=== PATIENT | female | born 1950 | race Caucasian/White ===

== ENCOUNTER 2016-10-26 06:37 | Day surgery (SDC) | payer OTHER ==
[2016-10-26] VITALS (9 sets, daily range): BP systolic 117–135; BP diastolic 67–87; PULSE 65–87; RESP 13–19; O2SAT 93–99
[~2016-10-26] VITALS: Ht 170.2 cm; Wt 89.5 kg
[~2016-10-26 06:37] MED LIST: ASCO-294 PO; CALC-140 PO; CeFAZolin Inj 2 GM in IV Premix 1 EACH IV ONE; DILT180C81 PO; GLUC-180 PO; LEVO200T6 PO; Lactated Ringer's 1,000 ML IV SCH; MULT-1018 PO; OMEG1CAP25 PO; OMEP20CA11 PO; RED600CA2 PO; cranberry
[2016-10-26] MEDS ORDERED: Ondansetron 2 mg/mL 2 mL Inj ONE (06:38)
[2016-10-26] MEDS ORDERED: fentaNYL-PF 50 mCg/mL 2 mL Inj ONE (06:38)
[2016-10-26] MEDS ORDERED: Propofol 10,000 mCg/mL 20 mL Inj ONE (06:38)
--- NOTE | 2016-10-26 07:17 | PCM.HPANE ---
Patient Data Surgeon Admitting Provider: Attending Provider:Jimbo Simon DO Primary Care Physician:Geovany Other Provider: Reason for Visit Right Index Finger Dupuytren Contracture Ht/WT & BMI Height (Feet): 5 Height (Inches): 7 Weight (Kilograms): 89.53 Body Mass Index 30.00 Allergies Coded Allergies: lisinopril (Verified Allergy, Unknown, cough, 06/02/16) Past Anesthesia History Anesthesia History: Denies:: Abnormal Airway, Anesthesia Reactions ("doesnt always work" medication tolerant), Difficult Intubation, Fam Anesthesia Reaction , Malignant Hyperthermia Diabetes History Hx Diabetes?: No MRSA MRSA: No Medications Blood Thinner: Aspirin Reported Medications Ascorbate Calcium (Vitamin C)500 Mg Qladiu820 Mg PO DAILY 10/24/16 Red Yeast Rice 600 Mg [id number] Mg PO DAILY 10/24/16 Omeprazole 20 Mg Capsule.dr20 Mg PO DAILY Ref 0 10/24/16 Aurora-3 Fatty Acids/Fish Oil (Aurora 3 Fish Oil Softgel)1 Each Capsule.dr1 Each PO DAILY 10/24/16 Multivitamin (Multi Vitamin Daily)1 Each Tablet1 Each PO DAILY 30 Days Ref 0 10/24/16 Levothyroxine 200 Mcg [id number] Mcg PO DAILY Ref 0 10/24/16 Glucosamine/MSM/Chondroitin A (Glucosamine Chondroit MSM Tab)1 Each Tablet1 Each PO DAILY 10/24/16 Diltiazem ER 180 Mg Capsule.er180 Mg PO DAILY Ref 0 10/24/16 [cranberry] No Conflict CheckUnknown Dose TID 10/24/16 Calcium Carbonate/Vitamin D3 (Calcium + Vitamin D Tablet)1 Each Tablet1 Each PO DAILY 10/24/16 Discontinued Reported Medications Red Yeast Rice 600 Mg Capsule1,200 Mg PO DAILY 05/31/16 Omeprazole 20 Mg Capsule.dr20 Mg PO DAILY Ref 0 05/31/16 Aurora-3 Fatty Acids/Fish Oil (Aurora 3 Fish Oil Softgel)1 Each Capsule.dr1 Each PO DAILY 05/31/16 Multivits Min/Iron/FA/Herb#186 (Hair, Skin & Nails Caplet)1 Each Tablet1 Each PO DAILY 05/31/16 Multivitamin (Multi Vitamin Daily)1 Each Tablet1 Each PO DAILY 30 Days Ref 0 05/31/16 Levothyroxine 200 Mcg [id number] Mcg PO DAILY Ref 0 05/31/16 Gluc Murcia/MSM/Magnesium/Vit C (Glucosamine Complex-MSM Cap)1 Each Capsule1 Each PO DAILY 05/31/16 Diltiazem ER 240 Mg Cap.er.irk973 Mg PO DAILY Ref 0 05/31/16 [cranberry] No Conflict CheckUnknown Dose TID 05/31/16 Calcium Carbonate/Vitamin D3 (Calcium + Vitamin D Tablet)1 Each Tablet1 Each PO DAILY 05/31/16 Aspirin 81 Mg Nubcnh93 Mg PO DAILY Ref 0 05/31/16 Ascorbate Calcium (Vitamin C)500 Mg Vqxawi132 Mg PO BID 05/31/16 History HEENT History: Denies:: Abnormal Airway Cataracts Difficult Intubation Dysphagia Hearing Problem Sinus Problem TMJ Hx of Heart Problems?: Yes Cardiovascular History: Positive for:: Atrial Fibrillation (paroxysmal atrial fib) Hypertension Irregular Heartbeat (PAF, hx of palpitations) Denies:: AICD Cardiac Surgery Chest Pain Congestive Heart Failure Heart Murmur Pacemaker Valvular Heart Disease (echo 11/2015- ef 61%) Hx of Respiratory Problem?: Yes Respiratory History: Positive for:: COPD (no home oxygen, no recent exacerbations, >4METS) Pneumonia ("years ago") Denies:: Asthma Cough Dyspnea Emphysema Oxygen Administration Tuberculosis Use of C-PAP Machine Hx Neurologic Problems?: No Neurological History: Denies:: CVA Dementia Headaches Multiple Sclerosis Parkinson's Disease Seizures Hx of GI Problems?: Yes Gastrointestinal History: Positive for:: Gastroesphageal Reflux (no symptoms) Heartburn Denies:: Cirrhosis Gastrointestinal Bleeding Hepatitis Hiatal Hernia Rectal Bleeding Hx of Problems?: Yes Genitourinary History: Positive for:: Kidney Stones (past hx of, passed spontaneously) Denies:: Urinary Tract Infection Female Hx: Positive for:: Problems with Breasts? (hx of left breast bx- benign , marker in place) Denies:: Currently (post menopausal) Skin History: Denies:: History Skin Disorders? Pressure Ulcers Hx Musculoskeletal Problems?: Yes Musculoskeletal History: Positive for:: Back Injury (chronic back pain) Degenerative Joint Musculoskeletal Trauma (right index finger current admission problem) Denies:: Joint Replacement Systemic Lupus Hx of Psycho/Social Problems?: Yes Psycho Social History: Positive for:: Anxiety Hx Surgeries?: Yes (D+C, breast aug, left knee scope, breast bx) Hx Any Other Health Problems?: Yes Other History: Positive for:: Thyroid Disease (on rx) Denies:: Cancer History Blood Transfusions: Denies:: Blood Transfusions Hx Diabetes: No Hx Alcohol Use: YesHx Substance Use: No Smoking Status: Former Smoker Have You Smoked inLast 12 mo: No Stop/Bang S-Snoring: Do You Snore Loudly: No T-Tired: feel tired, fatigued: No O-Obsered: Observed not breath: No P-Blood Pressure: treated: Yes B- Body Mass Index > 35 kg/m2: No A- Age over 50: Yes N- Neck Large Circumference: No G- Gender Male: No KOSTAS Total Score: 2 Risk Assessment Category Category 1A: Patient has history of documented sleep apnea, and HAS NOT received any narcotic, sedative or anesthesia administration during this stay. Category 1B: Patient has history of documented sleep apnea, and HAS received any narcotic , sedative or anesthesia administration during this stay Category 2: Patient has SUSPECTED Obstructive Sleep Apnea, and HAS received any narcotic , sedative or anesthesia administration during this stay. Category 3: Patient has SUSPECTED Obstructive Sleep Apnea and HAS NOT received narcotic, sedative or anesthesia administration during this stay. Category 4: Outpatient in Procedural Areas with known sleep apnea or who screen positive for High Risk via the STOP/BANG questionnaire. Exam Exam General Appearance: Alert, Oriented X3, Cooperative, Mild Distress HEENT/AIRWAY: MP 2, Neck Movement (from), Mouth Opening (wnl, moderate mouth opening) Lungs: Clear to Auscultation Heart: Exam Unremarkable Plan Impression Patient chart reviewed, patient interviewed and anesthestic plan with risks, benefits, and alternatives discussed, and informed consent obtained. NPO Status: 6PM 06/01 ASA Physical Status: ASA2 Mod Systemic Disease Anesthetic Plan: GA Bene/Risks/Altern/Consents: Yes HP Complete Prior to Induction: Yes Other patient insists on GA. Uriah Christine MD Oct 26, 2016 07:17
[2016-10-26] MEDS ORDERED: Lactated Ringer's 1,000 ML IV ONE (07:30)
[2016-10-26] MEDS ORDERED: hydrALAZINE 20 mg/mL Inj IVPUSH PRN (07:55)
[2016-10-26] MEDS ORDERED: Ondansetron 2 mg/mL 2 mL Inj IVPUSH PRN (07:55)
[2016-10-26] MEDS ORDERED: Atropine 0.4 mg/mL Inj IVPUSH PRN (07:55)
[2016-10-26] MEDS ORDERED: Lactated Ringer's 500 ML IV PRN (07:55)
[2016-10-26] MEDS ORDERED: Phenylephrine 10,000 mCg/mL Inj IVPUSH PRN (07:55)
[2016-10-26] MEDS ORDERED: HYDROmorphone 1 mg/mL Inj IVPUSH PRN (07:55)
[2016-10-26] MEDS ORDERED: EPHEDrine Sulfate 50 mg/mL Inj IVPUSH PRN (07:55)
[2016-10-26] MEDS ORDERED: Labetalol 5 mg/mL 4 mL Inj IV PRN (07:55)
[2016-10-26] MEDS ORDERED: fentaNYL-PF 50 mCg/mL 2 mL Inj IVPUSH PRN (07:55)
[2016-10-26] MEDS ORDERED: Dexamethasone 4 mg/mL Inj IVPUSH PRN (07:55)
[2016-10-26] MEDS ORDERED: Lactated Ringer's 1,000 ML IV SCH (07:55)
[2016-10-26] MEDS ORDERED: Lidocaine 1%-Epi 1:100,000 20 mL Inj INJ ONE (08:22)
[2016-10-26] MEDS ORDERED: HYDROcodone-APAP 7.5-325 mg Tablet PO PRN (09:05)
--- NOTE | 2016-10-26 09:18 | PCM.ANEP1 ---
Post Anesthesia Phase 1 PACU Phase 1 Assessment Vital Signs Vital Signs Date Time Temp Pulse Resp B/P Pulse Ox O2 Delivery O2 Flow Rate FiO2 10/26/16 09:10 81 18 117/69 96 Room Air 10/26/16 09:05 87 18 121/70 96 Room Air 10/26/16 09:04 36.3 87 17 124/78 96 Room Air 10/26/16 07:37 35.8 71 19 135/87 97 Room Air Anesthetic Administered: GA Level of Alertness: Awake, talking VILLARREAL's with Equal Strength: Yes Pain: No Nausea or Vomiting: No Oxygen Delivery: Room Air Lungs: Normal Air Movement Uriah Christine MD Oct 26, 2016 09:18
--- NOTE | 2016-10-26 12:23 | PCM.ANEP2 ---
Post Anesthesia Evaluation ASA/CMS Post Anesthesia VS in Patient's Normal Range?: Yes Resp Stable; Airway Patent?: Yes CV Function & Hydration Stable: Yes Mental Status Recovered?: Yes Pain control Satisfactory?: Yes N/V Control Satisfactory?: Yes Uriah Christine MD Oct 26, 2016 12:23
--- NOTE | 2016-10-27 00:24 | OP ---
[address] [address] OPERATIVE REPORT PATIENT: TONE SOTOMAYOR : 1950 MR#: [id number] ADMIT: 10/26/2016 JOB ID: [id number] DATE OF SURGERY: 10/26/2016 PREOPERATIVE DIAGNOSIS(ES): Right index finger Dupuytren's contracture. POSTOPERATIVE DIAGNOSIS(ES): Right index finger Dupuytren's contracture. PROCEDURE: Right index finger fasciectomy. SURGEON: Jimbo Simon D.O. ANESTHESIA: General. BRIEF HISTORY: The patient is a pleasant 66-year-old female with a longstanding history of Dupuytren's. She had many procedures performed to her left hand. With her right hand she started developing progressive contracture to her right index finger at the PIP joint. She did not demonstrate an appreciable palpable cord along the proximal phalanx, but did have a longitudinal cord along the axis of the index finger overlying the second metacarpal. I discussed with the patient the risks, benefits, alternatives and indications to proceed with operative intervention vs needle aponeurotomy and Xiaflex which was not a viable option as she did not demonstrate a palpable cord overlying the proximal phalanx that was leading to the PIP contracture. She has had previous Xiaflex injections to her contralateral hand, as well as surgery, and she had opted to proceed with surgery for the right index finger. She understood the risks include, but are not limited to, neurovascular injury, tendon injury, infection, failure to resolve the contracture, stiffness, persistent pain, all of which may require further intervention. Patient had all questions answered. Consent was signed and placed in chart. PROCEDURE IN DETAIL: The patient was brought to the operative suite and placed supine on the operating table. Surgical time-out was performed. Everyone in the room was in agreement. After appropriate anesthesia was obtained, a right upper arm tourniquet was applied. The right upper extremity was then prepped and draped in sterile fashion. Right upper extremity was then exsanguinated and tourniquet inflated to 250 mmHg. The patient's right index finger was approached with a Maria Eugenia incision centered at the proximal phalanx extending distally to the middle phalanx and proximally overlying the second metacarpophalangeal joint. Dissection started proximally at the most proximal aspect of the incision to identify the digital neurovascular bundles. Once the digital neurovascular bundles were identified, dissection was carried out distally to ensure that the neurovascular bundles were well protected. A longitudinal cord was identified and excised. This did not allow for any further extension of the PIP contracture. Further dissection revealed a spiral cord along the ulnar margin of the index finger. Again, the digital neurovascular bundle was identified and well protected as the cord was fully excised. This allowed for full extension of the PIP joint to neutral. Copious irrigation was then performed, followed by closure of the skin with 5-0 nylon in simple interrupted fashion. The patient was placed in a well-padded, well-molded radial gutter splint. ESTIMATED BLOOD LOSS: Less than 5 cc. COMPLICATIONS: None. DISPOSITION: The patient tolerated procedure well. Anesthesia was reversed. The patient was transferred to PACU for recovery. SPECIMENS: Palmar fascia that was removed and disposed of. POSTOPERATIVE PLAN: The patient will follow up next week with occupational therapy. She will have her dressings changed. She will be transitioned into a removable hand based splint that will keep her index finger fully extended at the PIP joint. She is to use this brace mainly at night when she sleeps, and otherwise can work on range of motion to the right hand and index finger. She will follow up in the office in two weeks for suture removal. BEBETO
== END 2016-10-26 23:59 | disposition home or self-care (01) ==
LOC: SAS 06:37
PROVIDERS: ATTEND Orthopaedic Surgery
DX: M72.0 Palmar fascial fibromatosis [Dupuytren] (principal); I10 Essential (primary) hypertension; I48.91 Unspecified atrial fibrillation; J45.909 Unspecified asthma, uncomplicated; K21.9 Gastro-esophageal reflux disease without esophagitis; J44.9 Chronic obstructive pulmonary disease, unspecified; F41.9 Anxiety disorder, unspecified; E78.00 Pure hypercholesterolemia, unspecified; Z87.891 Personal history of nicotine dependence; Z79.82 Long term (current) use of aspirin; Z87.442 Personal history of urinary calculi
CPT/HCPCS: 26040; J0690; J2250; J2405; J3010; J7120